=== PATIENT | female | born 1970 | race Caucasian/White ===

== ENCOUNTER 2017-06-23 19:47 | Emergency (ER) | payer OTHER ==
[~2017-06-23] VITALS: Ht 162.6 cm; Wt 62.1 kg
[~2017-06-23 19:47] MED LIST: DECADRON PO; DOXYCYCLINE150 MG PO; DULCOLAX5 MG; FLEXERIL10 MG PO; MOTRIN600 M1 PO; NAPROXEN PO; PHENERGAN DM1 ML PO; PHENERGAN W/CODIENE PO; PREDNISONE PO; SINGULAIR PO; ZITHROMAX PO
[2017-06-23] MEDS ORDERED: SINGULAIR (19:59)
[2017-06-23] MEDS ORDERED: ZINC10 M1 (19:59)
== END 2017-06-23 21:18 | disposition home or self-care (01) ==
LOC: SED 19:47
DX: J02.9 Acute pharyngitis, unspecified (principal); J32.9 Chronic sinusitis, unspecified; F17.200 Nicotine dependence, unspecified, uncomplicated; Z88.2 Allergy status to sulfonamides; Z88.8 Allergy status to other drugs, medicaments and biological substances
CPT/HCPCS: 87651; 99283